=== PATIENT | female | born 1935 | race Caucasian/White ===

== ENCOUNTER 2022-07-16 14:32 | Emergency (ER) | payer MEDICARE, OTHER ==
[2022-07-16 15:07] LABS: ESTIMATED GFR 40 mL/min (>60)
[2022-07-16] MEDS ORDERED: Sodium Chloride 0.9% 1,000 ML IV ONE (15:28)
== END 2022-07-16 17:00 | disposition home or self-care (01) ==
LOC: FB.ED 14:32
DX: R55 Syncope and collapse (principal); Z79.899 Other long term (current) drug therapy
CPT/HCPCS: 36415; 80048; 81001; 84484; 85027; 87086; 93005; 96360; 99284; J7030